=== PATIENT | female | born 1950 | race Caucasian/White ===

== ENCOUNTER 2022-11-16 13:42 | Inpatient (IN) ==
[2022-11-16 18:13] VITALS: BMI 22.4
[2022-11-16] MEDS ORDERED: AMBIEN PO PRN (19:23)
--- NOTE | 2022-11-16 19:32 | DR.UPDATE ---
H&P UPDATE Review Yes Any changes to H&P?: No
[2022-11-16 19:56] LABS: BASOPHILS # (AUTO) 0.1 X10^3/uL (0.0-0.1); BASOPHILS % (AUTO) 1.4 % (0.2-1.0); EOSINOPHILS # (AUTO) 0.2 x10^3/uL (0.0-0.2); EOSINOPHILS % (AUTO) 3.5 % (0.9-2.9); HEMATOCRIT 32.7 % (36.0-47.0); LYMPHOCYTES # (AUTO) 1.6 X10^3/uL (1.3-2.9); LYMPHOCYTES % (AUTO) 35.6 % (21.0-51.0); MEAN CORPUSCULAR HEMOGLOBIN 32.4 pg (27.0-34.0); MEAN CORPUSCULAR HGB CONC 33.5 g/dL (33.0-35.0); MEAN CORPUSCULAR VOLUME 96.5 fL (80.0-100.0); MEAN PLATELET VOLUME 9.4 fL (7.4-11.0); MONOCYTES # (AUTO) 0.4 x10^3/uL (0.3-0.8); NEUTROPHILS # (AUTO) 2.3 x10^3/uL (2.2-4.8); NEUTROPHILS % (AUTO) 50.5 % (42.0-75.0); RED BLOOD COUNT 3.39 X10^6/uL (3.5-5.4); WHITE BLOOD COUNT 4.6 X10^3/uL (3.6-10.0)
[2022-11-16 20:04] LABS: ALANINE AMINOTRANSFERASE 13 Units/L (12-78); ALBUMIN 2.8 g/dL (3.4-5.0); ALKALINE PHOSPHATASE 99 Units/L (46-116); ASPARTATE AMINO TRANSFERASE 12 Units/L (15-37); BLOOD UREA NITROGEN 10 mg/dL (7-18); CALCIUM 8.3 mg/dL (8.5-10.1); CARBON DIOXIDE 34.5 mmol/L (21-32); CHLORIDE 103 mmol/L (98-107); COR CA(FOR HYPOALB) 9.3 mg/dL (8.5-10.1); SODIUM 139 mmol/L (136-145); TOTAL PROTEIN 5.9 g/dL (6.4-8.2); eGFR NON BLACK RACES > 60 (>60)
[2022-11-16] MEDS: LR 1,000 ML IV 1,000 ML IV SCH (23:20)
[2022-11-16] MEDS: ZOSYN VIAL 3.375 GRAMS 3.375 G in NS 100 ML IV 100 ML IV SCH (23:20)
[2022-11-16] MEDS: TOPAMAX TAB 100 MG PO SCH (23:32)
[2022-11-16] MEDS: MYSOLINE PO SCH (23:32)
[2022-11-16] MEDS: ZOVIRAX PO SCH (23:33)
[2022-11-16] MEDS: FLEXERIL TAB 10 MG PO SCH (23:33)
[2022-11-16] MEDS: PERCOCET TAB 5/325 MG PO PRN (23:38)
[2022-11-17] MEDS: M.S. CONTIN 30 MG EXTENDED RELEASE PO SCH ×2 (04:31→06:24)
[2022-11-17] MEDS: ZOVIRAX PO SCH ×3 (05:23→21:16)
[2022-11-17] MEDS: PERCOCET TAB 5/325 MG PO PRN (05:24)
[2022-11-17] MEDS: ZOSYN VIAL 3.375 GRAMS 3.375 G in NS 100 ML IV 100 ML IV SCH ×3 (05:24→21:18)
[2022-11-17] MEDS: SYNTHROID 25 mcg TAB PO SCH (06:16)
--- NOTE | 2022-11-17 07:07 | RAD ---
HISTORYPreop infected left hip woundSTUDYChest AP portableCOMPARISONNoneFINDINGSHeart size is normal. Sophie are normal. Lung hernandez are clear. No pleural effusions are identified. Bony thorax is unremarkable.IMPRESSIONLungs clearElectronically signed by: ROLO MCCAULEY (Nov 17, 2022 07:06:19)
[2022-11-17] MEDS ORDERED: PREMARIN PO SCH (09:00)
[2022-11-17] MEDS ORDERED: LEXAPRO ONE (09:53)
[2022-11-17] MEDS: ZETIA TAB 10 MG PO SCH (09:59)
[2022-11-17] MEDS: TOPAMAX TAB 100 MG PO SCH ×2 (09:59→21:17)
[2022-11-17] MEDS: FLEXERIL TAB 10 MG PO SCH ×2 (09:59→21:16)
[2022-11-17] MEDS: PROTONIX TAB 40 MG PO SCH (09:59)
[2022-11-17] MEDS: ZyrTEC TAB 10 MG PO SCH (09:59)
[2022-11-17] MEDS: OXYBUTYNIN CHLORIDE ER PO SCH (09:59)
[2022-11-17] MEDS: LEXAPRO PO SCH (10:00)
[2022-11-17] MEDS: LR 1,000 ML IV 1,000 ML IV SCH ×3 (11:47→21:18)
[2022-11-17] MEDS: M.S. CONTIN 15 MG (EXTENDED RELEASE) PO SCH ×2 (13:51→21:17)
[2022-11-17] MEDS: PATIENT'S HOME MEDICATION PO SCH (16:44)
[2022-11-17] MEDS: BENTYL CAP 10 MG PO SCH ×2 (17:16→21:17)
[2022-11-17] MEDS ORDERED: AMBIEN PO PRN (19:27)
--- NOTE | 2022-11-17 19:50 | NOTE.SOAP ---
Soap Note Note for Day of Date of Exam: 11/17/22 Subjective Data Subjective Data: Stable hospital course, Hgb= 11.0, WBC=4.6. Objective Data Temperature: 97.8 F Pulse Rate: 102 Respiratory Rate: 20 Blood Pressure: 157/72 O2 Sat by Pulse Oximetry: 98 Objective Data: Wound left hip Assessment Assessment: Left hip open wound Plan Plan: Continue IV antibiotics and plan excisional debridement of left hip wound and place wound vacuum.
[2022-11-17] MEDS: NORCO 10/325 TAB PO PRN (19:52)
[2022-11-17] MEDS ORDERED: PATIENT'S HOME MEDICATION PO SCH (21:00)
[2022-11-17] MEDS: MYSOLINE PO SCH (21:17)
[2022-11-17] MEDS: INDERAL TAB 10 MG PO SCH (21:17)
[2022-11-18] MEDS: INDERAL TAB 10 MG PO SCH ×3 (05:19→21:23)
[2022-11-18] MEDS: M.S. CONTIN 15 MG (EXTENDED RELEASE) PO SCH ×3 (05:20→21:24)
[2022-11-18] MEDS: ZOSYN VIAL 3.375 GRAMS 3.375 G in NS 100 ML IV 100 ML IV SCH ×3 (05:20→21:22)
[2022-11-18] MEDS: ZOVIRAX PO SCH ×3 (05:20→21:24)
[2022-11-18] MEDS: SYNTHROID 25 mcg TAB PO SCH (05:41)
[2022-11-18] MEDS: BENTYL CAP 10 MG PO SCH ×4 (10:04→21:23)
[2022-11-18] MEDS: FLEXERIL TAB 10 MG PO SCH ×2 (10:04→21:23)
[2022-11-18] MEDS: ZETIA TAB 10 MG PO SCH (10:05)
[2022-11-18] MEDS: ZyrTEC TAB 10 MG PO SCH ×2 (10:05→13:57)
--- NOTE | 2022-11-18 10:06 | EKG ---
Test Reason : pre-op Blood Pressure : */* mmHG Vent. Rate : 88 BPM Atrial Rate : 88 BPM P-R Int : 120 ms QRS Dur : 66 ms QT Int : 372 ms P-R-T Axes : 57 72 51 degrees QTc Int : 450 ms Normal sinus rhythm Normal ECG No previous ECGs available Confirmed by Mo Edgar ([id number]) on 11/20/2022 1:42:39 PM Referred By: Confirmed By: Mo Edgar
[2022-11-18] MEDS: TOPAMAX TAB 100 MG PO SCH ×3 (10:15→21:23)
[2022-11-18] MEDS: LEXAPRO PO SCH ×2 (10:15→13:52)
[2022-11-18] MEDS: PROTONIX TAB 40 MG PO SCH ×2 (10:16→13:56)
[2022-11-18] MEDS ORDERED: NS 100 ML IV 100 ML ONE (10:51)
[2022-11-18] MEDS ORDERED: ANCEF VIAL 1 GRAM ONE (10:51)
[2022-11-18] MEDS ORDERED: LR 1,000 ML IV 1,000 ML IV ONE (10:51)
[2022-11-18] MEDS ORDERED: MARCAINE/EPINEPHRINE ONE (11:13)
[2022-11-18] MEDS ORDERED: DIPRIVAN VIAL 20 ML ONE (11:13)
[2022-11-18] MEDS ORDERED: BETADINE SOLN ONE (11:13)
[2022-11-18] MEDS ORDERED: VERSED ONE (11:14)
[2022-11-18] MEDS ORDERED: FENTANYL VIAL INJ 100 mcg ONE (11:14)
[2022-11-18] MEDS ORDERED: KETAMINE HCL ONE (11:20)
[2022-11-18] MEDS: OXYBUTYNIN CHLORIDE ER PO SCH (11:20)
[2022-11-18] MEDS: PATIENT'S HOME MEDICATION PO SCH (11:22)
[2022-11-18] MEDS ORDERED: BACTROBAN TOPICAL OINT ONE (11:55)
[2022-11-18] MEDS ORDERED: DILAUDID INJ ONE (12:01)
--- NOTE | 2022-11-18 12:06 | OR.IMMED ---
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 Post-Op Diagnosis: same Procedure: Excisional debridement left hip wound , place wound vacuum, incisional biopsy left lateral malleolus wound Description of Procedure: see operative summary Surgeon/Mutuel Machine Operator: Alvaro Specimens Removed: as above , both sent for permanent pathology Complications: none Progress Notes: Return to floor, consult home health , plan discharge tomorrow
[2022-11-18] MEDS ORDERED: LEXAPRO ONE (13:36)
[2022-11-18] MEDS: NORCO 10/325 TAB PO PRN (18:14)
[2022-11-18] MEDS: LR 1,000 ML IV 1,000 ML IV SCH (18:50)
[2022-11-18] MEDS: MYSOLINE PO SCH (21:24)
[2022-11-19] MEDS ORDERED: NS 250 ML IV 250 ML IV ONE (04:43)
[2022-11-19] MEDS: ZOVIRAX PO SCH (05:19)
[2022-11-19] MEDS: INDERAL TAB 10 MG PO SCH (05:19)
[2022-11-19] MEDS: M.S. CONTIN 15 MG (EXTENDED RELEASE) PO SCH (05:20)
[2022-11-19] MEDS: ZOSYN VIAL 3.375 GRAMS 3.375 G in NS 100 ML IV 100 ML IV SCH (05:20)
[2022-11-19] MEDS: SYNTHROID 25 mcg TAB PO SCH (05:33)
[2022-11-19] MEDS ORDERED: LEXAPRO ONE (08:32)
[2022-11-19] MEDS: ZETIA TAB 10 MG PO SCH ×2 (08:51→09:04)
[2022-11-19] MEDS: TOPAMAX TAB 100 MG PO SCH (08:51)
[2022-11-19] MEDS: BENTYL CAP 10 MG PO SCH (08:52)
[2022-11-19] MEDS: OXYBUTYNIN CHLORIDE ER PO SCH (08:52)
[2022-11-19] MEDS: ZyrTEC TAB 10 MG PO SCH (08:53)
[2022-11-19] MEDS: FLEXERIL TAB 10 MG PO SCH (08:54)
[2022-11-19] MEDS: PROTONIX TAB 40 MG PO SCH (08:54)
[2022-11-19] MEDS: LEXAPRO PO SCH (08:54)
[2022-11-19] MEDS: NORCO 10/325 TAB PO PRN (08:55)
[2022-11-19 12:38] VITALS: BP 123/65
--- NOTE | 2022-11-19 23:46 | W.DIS.FURT ---
Summary of Discharge Discharge Summary of Date Date of Exam: 11/19/22 Admission Date Date of Admission: 11/16/22 Admission Diagnosis Hospital Course: 72 year old female who was admitted with a 5 cm necrotic wound to the left hip. She has history of pyoderma gangrenosum to the left medial ankle which is now healed and now has a 2-cm wound to the left lateral malleolus. She was admitted and placed on IV antibiotics. She underwent excisional debridement of the left hip yesterday with placement of a wound vacuum and excisional biopsy of the left lateral malleolus wound. She will be discharged home today with Home Health to care for the wound vacuum and I will see her in the office in one week. She will be on her usual medications and she will be on the Clindamycin 150 mg po QID.. Vital Signs: Vital Signs (72 hours) 11/17/22 19:49 11/17/22 00:00 11/17/22 00:38 Temperature 97.8 F 97.9 F Pulse Rate 102 H Pulse Rate [Brachial] Pulse Rate [Left Radial] 89 Respiratory Rate 20 18 18 Blood Pressure 157/72 Blood Pressure [Left Arm] Blood Pressure [Right Arm] 174/89 O2 Sat by Pulse Oximetry 98 95 Oxygen Delivery Method Room Air 11/17/22 04:00 11/17/22 05:24 11/17/22 06:24 Temperature 97.6 F Pulse Rate Pulse Rate [Brachial] Pulse Rate [Left Radial] 87 Respiratory Rate 20 20 20 Blood Pressure Blood Pressure [Left Arm] Blood Pressure [Right Arm] 146/76 O2 Sat by Pulse Oximetry 95 Oxygen Delivery Method Room Air 11/17/22 06:24 11/17/22 07:20 11/17/22 08:00 Temperature 99.0 F Pulse Rate Pulse Rate [Brachial] Pulse Rate [Left Radial] 104 H Respiratory Rate 20 20 Blood Pressure Blood Pressure [Left Arm] Blood Pressure [Right Arm] 142/77 O2 Sat by Pulse Oximetry 94 L Oxygen Delivery Method Room Air Room Air 11/17/22 12:00 11/17/22 13:51 11/17/22 14:51 Temperature 97.8 F Pulse Rate Pulse Rate [Brachial] Pulse Rate [Left Radial] 102 H Respiratory Rate 20 20 20 Blood Pressure Blood Pressure [Left Arm] 157/72 Blood Pressure [Right Arm] O2 Sat by Pulse Oximetry 96 Oxygen Delivery Method Room Air 11/17/22 16:00 11/17/22 19:00 11/17/22 19:52 Temperature 97.4 F L Pulse Rate Pulse Rate [Brachial] Pulse Rate [Left Radial] 98 H Respiratory Rate 20 18 Blood Pressure Blood Pressure [Left Arm] 149/70 Blood Pressure [Right Arm] O2 Sat by Pulse Oximetry 95 Oxygen Delivery Method Room Air Room Air 11/17/22 20:00 11/17/22 20:52 11/17/22 21:17 Temperature 98.2 F Pulse Rate Pulse Rate [Brachial] Pulse Rate [Left Radial] 108 H Respiratory Rate 20 18 18 Blood Pressure Blood Pressure [Left Arm] Blood Pressure [Right Arm] 142/73 O2 Sat by Pulse Oximetry 98 Oxygen Delivery Method Room Air 11/18/22 00:00 11/17/22 22:17 11/18/22 05:15 Temperature 97.3 F L 97.9 F Pulse Rate Pulse Rate [Brachial] Pulse Rate [Left Radial] 91 H 85 Respiratory Rate 20 18 20 Blood Pressure Blood Pressure [Left Arm] Blood Pressure [Right Arm] 120/67 129/74 O2 Sat by Pulse Oximetry 94 L 94 L Oxygen Delivery Method Room Air Room Air 11/18/22 07:12 11/18/22 08:00 11/18/22 12:01 Temperature 97.9 F Pulse Rate Pulse Rate [Brachial] Pulse Rate [Left Radial] 86 Respiratory Rate 18 20 Blood Pressure Blood Pressure [Left Arm] Blood Pressure [Right Arm] 163/72 O2 Sat by Pulse Oximetry 86 L Oxygen Delivery Method Room Air Room Air 11/18/22 13:49 11/18/22 12:10 11/18/22 12:25 Temperature 98.6 F Pulse Rate Pulse Rate [Brachial] 95 H 101 H Pulse Rate [Left Radial] Respiratory Rate 20 18 18 Blood Pressure Blood Pressure [Left Arm] 144/64 135/72 Blood Pressure [Right Arm] O2 Sat by Pulse Oximetry 94 L 96 Oxygen Delivery Method 11/18/22 12:40 11/18/22 12:55 11/18/22 13:10 Temperature 98.3 F Pulse Rate Pulse Rate [Brachial] 107 H 102 H 103 H Pulse Rate [Left Radial] Respiratory Rate 18 18 18 Blood Pressure Blood Pressure [Left Arm] 133/72 134/64 148/67 Blood Pressure [Right Arm] O2 Sat by Pulse Oximetry 95 94 L 94 L Oxygen Delivery Method 11/18/22 14:10 11/18/22 18:14 11/18/22 16:10 Temperature 98.3 F 98.2 F Pulse Rate Pulse Rate [Brachial] 109 H 90 Pulse Rate [Left Radial] Respiratory Rate 18 18 18 Blood Pressure Blood Pressure [Left Arm] 146/63 142/65 Blood Pressure [Right Arm] O2 Sat by Pulse Oximetry 93 L 92 L Oxygen Delivery Method 11/18/22 17:10 11/18/22 19:09 11/18/22 19:00 Temperature 98.6 F Pulse Rate Pulse Rate [Brachial] 90 Pulse Rate [Left Radial] Respiratory Rate 18 18 Blood Pressure Blood Pressure [Left Arm] 134/63 Blood Pressure [Right Arm] O2 Sat by Pulse Oximetry 93 L Oxygen Delivery Method Room Air 11/18/22 20:00 11/18/22 21:24 11/18/22 22:24 Temperature 97.7 F Pulse Rate Pulse Rate [Brachial] 87 Pulse Rate [Left Radial] Respiratory Rate 20 18 18 Blood Pressure Blood Pressure [Left Arm] Blood Pressure [Right Arm] 159/76 O2 Sat by Pulse Oximetry 95 Oxygen Delivery Method Room Air 11/18/22 23:51 11/19/22 04:00 11/19/22 05:20 Temperature 98.4 F 98.6 F Pulse Rate Pulse Rate [Brachial] 89 84 Pulse Rate [Left Radial] Respiratory Rate 20 20 20 Blood Pressure Blood Pressure [Left Arm] Blood Pressure [Right Arm] 142/68 121/62 O2 Sat by Pulse Oximetry 95 94 L Oxygen Delivery Method Room Air Room Air 11/19/22 06:20 11/19/22 08:55 11/19/22 07:00 Temperature Pulse Rate Pulse Rate [Brachial] Pulse Rate [Left Radial] Respiratory Rate 18 18 Blood Pressure Blood Pressure [Left Arm] Blood Pressure [Right Arm] O2 Sat by Pulse Oximetry Oxygen Delivery Method Room Air 11/19/22 08:00 11/19/22 09:55 11/19/22 12:00 Temperature 98.5 F 98.3 F Pulse Rate Pulse Rate [Brachial] 79 80 Pulse Rate [Left Radial] Respiratory Rate 18 18 18 Blood Pressure Blood Pressure [Left Arm] 129/60 123/65 Blood Pressure [Right Arm] O2 Sat by Pulse Oximetry 96 94 L Oxygen Delivery Method Room Air Room Air Labs: Laboratory Last Values WBC 4.6 X10^3/uL (3.6-10.0) 11/16/22 19:44 RBC 3.39 X10^6/uL (3.5-5.4) L 11/16/22 19:44 Hgb 11.0 g/dL (12.0-16.0) L 11/16/22 19:44 Hct 32.7 % (36.0-47.0) L 11/16/22 19:44 MCV 96.5 fL (80.0-100.0) 11/16/22 19:44 MCH 32.4 pg (27.0-34.0) 11/16/22 19:44 MCHC 33.5 g/dL (33.0-35.0) 11/16/22 19:44 RDW 15.0 % (11.6-16.5) 11/16/22 19:44 Plt Count 201 X10^3/uL (150.0-450.0) 11/16/22 19:44 MPV 9.4 fL (7.4-11.0) 11/16/22 19:44 Neut % (Auto) 50.5 % (42.0-75.0) 11/16/22 19:44 Lymph % (Auto) 35.6 % (21.0-51.0) 11/16/22 19:44 [place] % (Auto) 9.0 % (0.0-13.0) 11/16/22 19:44 Eos % (Auto) 3.5 % (0.9-2.9) H 11/16/22 19:44 Baso % (Auto) 1.4 % (0.2-1.0) H 11/16/22 19:44 Neut # (Auto) 2.3 x10^3/uL (2.2-4.8) 11/16/22 19:44 Lymph # (Auto) 1.6 X10^3/uL (1.3-2.9) 11/16/22 19:44 [place] # (Auto) 0.4 x10^3/uL (0.3-0.8) 11/16/22 19:44 Eos # (Auto) 0.2 x10^3/uL (0.0-0.2) 11/16/22 19:44 Baso # (Auto) 0.1 X10^3/uL (0.0-0.1) 11/16/22 19:44 Absolute Nucleated RBC 0.0 /100WBC 11/16/22 19:44 Sodium 139 mmol/L (136-145) 11/16/22 19:44 Corrected Sodium TNP 11/16/22 19:44 Potassium 3.3 mmol/L (3.5-5.1) L 11/16/22 19:44 Chloride 103 mmol/L (98-107) 11/16/22 19:44 Carbon Dioxide 34.5 mmol/L (21-32) H 11/16/22 19:44 BUN 10 mg/dL (7-18) 11/16/22 19:44 Creatinine 0.70 mg/dL (0.55-1.02) 11/16/22 19:44 Est GFR (MDRD) Af Amer > 60 (>60) 11/16/22 19:44 Est GFR (MDRD) Non-Af > 60 (>60) 11/16/22 19:44 Glucose 109 mg/dL (65-99) H 11/16/22 19:44 Calcium 8.3 mg/dL (8.5-10.1) L 11/16/22 19:44 Corrected Calcium 9.3 mg/dL (8.5-10.1) 11/16/22 19:44 Total Bilirubin 0.20 mg/dL (0.2-1.0) 11/16/22 19:44 AST 12 Units/L (15-37) L 11/16/22 19:44 ALT 13 Units/L (12-78) 11/16/22 19:44 Alkaline Phosphatase 99 Units/L (46-116) 11/16/22 19:44 Total Protein 5.9 g/dL (6.4-8.2) L 11/16/22 19:44 Albumin 2.8 g/dL (3.4-5.0) L 11/16/22 19:44 Globulin 3.1 g/dL (2.5-4.5) 11/16/22 19:44 Albumin/Globulin Ratio 0.9 Ratio (1.1-2.1) L 11/16/22 19:44 Reason For Visit: INFECTED LEFT HIP WOUND Discharge Date Discharge Date: 11/19/22 Discharge Diagnosis Plan of Treatment: Continue with present treatment and follow up plan. Pt is to keep follow up appointment as instructed and take medications as ordered. Discharge Medications Discharge Medications: pregabalin [From Lyrica] Allergy (Severe, Verified 11/16/22 22:13) ANAPHALEXIS REACTION CONTINUE taking the following medications eszopiclone 3 mg tablet 3 mg PO QHS 11/16/22 [History] morphine 15 mg tablet,extended release 15 mg PO Q8H PRN 11/16/22 [History] primidone 50 mg tablet 150 mg PO QHS 11/16/22 [History] quetiapine 200 mg tablet 200 mg PO QAM 11/16/22 [History] cariprazine 3 mg capsule 3 mg PO QDAY 11/17/22 [History] cyclobenzaprine 10 mg tablet 10 mg PO TID 11/17/22 [History] dicyclomine 20 mg tablet 20 mg PO QID 11/17/22 [History] hydrocodone 10 mg-acetaminophen 325 mg tablet 1 tab PO QID PRN pain 11/17/22 [History] propranolol 40 mg tablet 40 mg PO TID 11/17/22 [History] quetiapine 200 mg tablet 400 mg PO QPM 11/17/22 [History] New Prescriptions clindamycin HCl 150 mg capsule 150 mg PO QID #20 caps 11/19/22 [Rx] Discharge Disposition Assessment: No acute distress noted at discharge. Discharge Plan Discharge Plan Hospital Course: 72 year old female who was admitted with a 5 cm necrotic wound to the left hip. She has history of pyoderma gangrenosum to the left medial ankle which is now healed and now has a 2-cm wound to the left lateral malleolus. She was admitted and placed on IV antibiotics. She underwent excisional debridement of the left hip yesterday with placement of a wound vacuum and excisional biopsy of the left lateral malleolus wound. She will be discharged home today with Home Health to care for the wound vacuum and I will see her in the office in one week. She will be on her usual medications and she will be on the Clindamycin 150 mg po QID.. Patient Disposition: HOME HEALTH SERVICE Condition: Stable Health Concerns: Post Hospitalization: new medications and changes needed to prevent readmission or further decline. Pt educated and given instructions on all concerns. Care Plan Goals: Problem: Infection Goal: Temperature within normal limits. Resolved infection. Instructions: Follow provided instructions. Follow up with primary physician as directed. Contact primary care physician or report to the closest Emergency Room if condition worsens. Plan of Treatment: Continue with present treatment and follow up plan. Pt is to keep follow up appointment as instructed and take medications as ordered. Assessment: No acute distress noted at discharge. Prescriptions: New clindamycin HCl 150 mg Capsule 150 mg PO QID Qty: 20 0RF No Action primidone 50 mg tablet 150 mg PO QHS Rx Instructions: TAKE THREE TABLETS BY MOUTH EVERY NIGHT AT BEDTIME morphine 15 mg tablet extended release 15 mg PO Q8H PRN Rx Instructions: TAKE ONE TABLET BY MOUTH EVERY 8 HOURS NEEDED eszopiclone 3 mg tablet 3 mg PO QHS Rx Instructions: TAKE ONE TABLET BY MOUTH IMMEDIATELY BEFORE BEDTIME quetiapine 200 mg tablet 200 mg PO QAM Rx Instructions: TAKE ONE TABLET BY MOUTH EVERY MORNING AND TAKE TWO TABLETS BY MOUTH EVERY EVENING cyclobenzaprine 10 mg Tablet 10 mg PO TID Rx Instructions: TAKE ONE TABLET BY MOUTH THREE TIMES A DAY quetiapine 200 mg tablet 400 mg PO QPM Rx Instructions: TAKE ONE TABLET BY MOUTH EVERY MORNING AND TAKE TWO TABLETS BY MOUTH EVERY EVENING hydrocodone-acetaminophen 10-325 mg tablet 1 tab PO QID PRN (Reason: pain) Rx Instructions: TAKE ONE TABLET BY MOUTH FOUR TIMES DAILY NEEDED propranolol 40 mg Tablet 40 mg PO TID Rx Instructions: TAKE ONE TABLET BY MOUTH THREE TIMES A DAY dicyclomine 20 mg Tablet 20 mg PO QID Rx Instructions: TAKE ONE TABLET BY MOUTH FOUR TIMES A DAY cariprazine 3 mg Capsule 3 mg PO QDAY Rx Instructions: TAKE ONE CAPSULE BY MOUTH EVERY DAY Follow ups/Referrals Follow ups/Referrals: Dar John [STAFF PHYSICIAN] - 11/24/22 11:30 am REILLY CHEW [Primary Care Provider] - 1 WEEK Instructions Instructions: Negative Pressure Wound Therapy Home Guide, Muscle Pain, Adult, Hand Washing, [id number], Surgical Wound Debridement, Care After, Infection Prevention in the Home, How to Prevent Constipation After Surgery Stand Alone Forms: Excuse From Work or School
--- NOTE | 2022-11-22 23:27 | DR.OPNOTE ---
OP NOTE Pre-Op Diagnosis: Necrotic wound to the left hip, wound to left lateral malleolus Post-Op Diagnosis: same Procedure Date Date Of Procedure: 11/18/22 Procedure: PROCEDURE: EXCISION OF NECROTIC LEFT HIP WOUND AND PLACEMENT OF WOUND VACUUM ,INCISIONAL BIOPSY OF LATERAL MALLOLAR WOUND NARRATIVE: The patient was taken to the operative suite and placed in the right lateral position. She was given intravenous sedation which was supervised by myself. The entire left leg and left hip were prepped and draped in sterile fashion. Time out for the procedure obtained. 20 cc's of 0.5% Marcaine injected in the space around the necrotic wound of the left hip with a circular measure 5 cm in diameter and 3 cm in depth . Incision made around wound on the skin edge the with a # 10 blade knife and electrocautery used to excise the entire lesion down to the fascia covering the greater trochanter of the left hip. Hemostasis obtained with electrocautery. Circular piece of black foam cut to fit the wound and it covered with an adhesive sheet. Small incision removing a one inch square from the adhesive sheet over the black foam . A tract of foam 1 inch wide by 7 inches long was placed over this opening and directed toward the left anterior thigh and then covered with another piece of adhesive foam leaving the distal end open along the thigh The circular track pad was applied over the open foam and it placed on suction at 150 mm of Hg with continuous action. The 2 cm diameter wound to the left lateral malleolus was infiltrated with 0.5% Marcaine and approximately one-fourth of this wound removed sharply with number 15 blade knife This patient has a history of pyoderma gangrenosum in the past. Dressing applied to the left lateral malleolus. The patient was taken back to her room. Findings: as above Specimen/Pathology: Both specimens sent to patholgy Type of Fluids Used:: Lactated Ringers Total Amount of Fluid Infused:: 500 cc EBL: minimal Complications:: none Needle/Sponge Count:: correct Disposition/Condition: Pt. tolerated procedure without difficulty. Patient taken back to her room in stable condition.
== END 2022-11-19 12:30 | disposition home health service (06) | DRG 571 ==
LOC: MED/SURG 17:18
PROVIDERS: ADMIT Surgery; ATTEND Surgery

== ENCOUNTER 2023-09-20 10:57 | Inpatient (IN) ==
[2023-09-20] MEDS: ZOSYN VIAL 3.375 GRAMS 3.375 G in NS 100 ML IV 100 ML IV SCH ×3 (13:30→21:43)
[2023-09-20 13:32] LABS: BASOPHILS # (AUTO) 0.2 X10^3/uL (0.0-0.1); BASOPHILS % (AUTO) 2.9 % (0.2-1.0); EOSINOPHILS # (AUTO) 0.4 x10^3/uL (0.0-0.2); EOSINOPHILS % (AUTO) 5.1 % (0.9-2.9); HEMATOCRIT 37.1 % (36.0-47.0); HEMOGLOBIN 12.1 g/dL (12.0-16.0); LYMPHOCYTES # (AUTO) 1.8 X10^3/uL (1.3-2.9); LYMPHOCYTES % (AUTO) 25.9 % (21.0-51.0); MEAN CORPUSCULAR HEMOGLOBIN 33.1 pg (27.0-34.0); MEAN CORPUSCULAR HGB CONC 32.7 g/dL (33.0-35.0); MEAN CORPUSCULAR VOLUME 101.3 fL (80.0-100.0); MONOCYTES # (AUTO) 0.5 x10^3/uL (0.3-0.8); MONOCYTES % (AUTO) 6.7 % (0.0-13.0); NEUTROPHILS # (AUTO) 4.2 x10^3/uL (2.2-4.8); NEUTROPHILS % (AUTO) 59.4 % (42.0-75.0); PLATELET COUNT 277 X10^3/uL (150.0-450.0); RED BLOOD COUNT 3.67 X10^6/uL (3.5-5.4); RED CELL DISTRIBUTION WIDTH 14.6 % (11.6-16.5); WHITE BLOOD COUNT 7.1 X10^3/uL (3.6-10.0)
[2023-09-20 13:51] VITALS: BMI 21.6
[2023-09-20] MEDS ORDERED: NORCO 10/325 TAB PO PRN (14:08)
--- NOTE | 2023-09-20 14:08 | NOTE.SOAP ---
Soap Note Note for Day of Date of Exam: 09/20/23 Subjective Data Subjective Data: [address] Jordan's office with a chief complaint of multiple painful ulcers to bilateral fee. She stated they developped approximately 3 months ago and she has been treating them conservatively. She has chronic pain in which she takes hydrocone and morphine. She denies any other symptoms at this time including nausea, vomiting, fever, chills, calf pain or SOB. Objective Data Objective Data: Multiple fibrotic and necrotic wounds: 1 on the medial aspect of the bilateral heel measuring approximatel 5x5 cm that has an underlying bulla developing they are superifical, no exposed bone and it does not probe to bone. Another wound on the lateral malleolus of the ankle with the same presentation but no bulla. Wounds are stable and do not appear infected. No purulence, erythema or edema noted. DP pulse is palpable, PT is not. Gross epicritic and protective sensation is intact. Muscle strength intact. Assessment Assessment: 73 female presenting with non healing arterial ulcers, BL feet and ankles due to PAD Plan Plan: Patient seen bedside. Explained that we will be taking her to surgery tomorrow 09/22/23 for debridement of bilateral feet and ankles. We ordered an CTA to evaluate for vascular intervention and will communicate with Dr. John. Reconcile pain medication. Patient is NPO after midnight tonight.
--- NOTE | 2023-09-20 14:22 | EKG ---
Test Reason : INFECTION BILATERAL HEELS Blood Pressure : */* mmHG Vent. Rate : 82 BPM Atrial Rate : 82 BPM P-R Int : 124 ms QRS Dur : 74 ms QT Int : 394 ms P-R-T Axes : 68 86 64 degrees QTc Int : 460 ms Normal sinus rhythm Possible Left atrial enlargement Borderline ECG When compared with ECG of 02-FEB-2023 12:33, No significant change was found Confirmed by Esdras Knox MD ([id number]) on 09/21/2023 6:33:37 AM Referred By: Confirmed By: Esdras Knox MD
[2023-09-20 14:35] LABS: ALANINE AMINOTRANSFERASE 19 Units/L (12-78); ALBUMIN 2.8 g/dL (3.4-5.0); ALKALINE PHOSPHATASE 113 Units/L (46-116); ASPARTATE AMINO TRANSFERASE 14 Units/L (15-37); BLOOD UREA NITROGEN 7 mg/dL (7-18); CARBON DIOXIDE 26.3 mmol/L (21-32); CHLORIDE 106 mmol/L (98-107); CREATININE 0.85 mg/dL (0.55-1.02); GLUCOSE 89 mg/dL (65-99); POTASSIUM 3.6 mmol/L (3.5-5.1); SODIUM 138 mmol/L (136-145); TOTAL PROTEIN 6.1 g/dL (6.4-8.2); eGFR NON BLACK RACES > 60 (>60)
[2023-09-20] MEDS ORDERED: ZANAFLEX PO PRN (15:13)
[2023-09-20] MEDS ORDERED: AMBIEN PO PRN (15:16)
[2023-09-20] MEDS ORDERED: OMNIPAQUE 350 mg/mL 100 mL BTL 100 ML ONE (16:11)
[2023-09-20] MEDS ORDERED: OMNIPAQUE 350 mg/mL 50 mL BTL 50 ML ONE ×2 (16:11→23:53)
[2023-09-20] MEDS: LASIX PO SCH (18:28)
[2023-09-20] MEDS: M.S. CONTIN 15 MG (EXTENDED RELEASE) PO PRN (19:59)
[2023-09-20] MEDS ORDERED: CONSULT PHARMACY - POTASSIUM & MAGNESIUM XX SCH (20:00)
[2023-09-20] MEDS: TOPAMAX TAB 100 MG PO SCH (20:41)
[2023-09-20] MEDS: MYSOLINE PO SCH (20:41)
[2023-09-20] MEDS ORDERED: M.S. CONTIN 15 MG (EXTENDED RELEASE) PO SCH (21:00)
[2023-09-20] MEDS ORDERED: K-DUR TAB 20 MEQ PO SCH (21:00)
--- NOTE | 2023-09-20 21:44 | RAD ---
EXAM: CHEST, PA/LAT ADULT HISTORY: INFECTION BILATERAL HEELS; COMPARISON: None available TECHNIQUE: PA and lateral projections, 2 images FINDINGS: Cardiac silhouette is normal in size and configuration. Pulmonary vascular sizes are normal. No effusion. No focal airspace disease. No pneumothorax. No acute osseous abnormality IMPRESSION: No imaging findings of acute cardiopulmonary disease. THIS IS AN ELECTRONICALLY VERIFIED FINAL REPORT 09/20/2023 9:40 PM - Electronically signed by Duane Kohli MD
[2023-09-20] MEDS: INDERAL TAB 10 MG PO SCH (21:46)
[2023-09-20] MEDS: BUSPAR PO SCH (22:00)
[2023-09-20] MEDS: MAG-OX TAB PO SCH ×2 (22:00→23:43)
--- NOTE | 2023-09-20 22:31 | CT ---
EXAM: CTA AORTA WITH RUNOFF HISTORY: infection b/l heels; COMPARISON: None. TECHNIQUE: Axial CT images of the abdomen, pelvis and lower extremities were obtained prior to and after the ad ministration of 150 mL Omnipaque 350 IV contrast during the arterial phase. Images were reformatted w ith a 3D angiographic technique for further evaluation. Radiation dose: 758.03 mGy-cm total DLP FINDINGS: Aorta: Mild atherosclerotic changes with no aneurysm. No clinically significant stenosis or occlusio n. Mesenteric arteries/Celiac trunk: No clinically significant stenosis, occlusion or aneurysm. Renal arteries: No clinically significant stenosis, occlusion or aneurysm. Right iliac arteries: No clinically significant stenosis, occlusion or aneurysm. Left iliac arteries: No clinically significant stenosis, occlusion or aneurysm. Right femoral arteries/popliteal artery: No clinically significant stenosis, occlusion or aneurysm. Left femoral arteries/popliteal artery: No clinically significant stenosis, occlusion or aneurysm. Right infrapopliteal arteries: No occlusion or aneurysm. 3 vessel runoff. Left infrapopliteal arteries: No occlusion or aneurysm. 3 vessel runoff. Pulmonary embolus in the posterior segmental and subsegmental pulmonary arteries to the right lower l obe. Pulmonary embolus in the lateral segmental pulmonary artery to the left lower lobe. Lung bases are clear. No acute osseous abnormality. Stomach and proximal small bowel appear normal. Solid visceral organs of the upper abdomen are unremarkable. Status post cholecystectomy. No biliary dilatation. Homogeneous enhancement of the kidneys without hydronephrosis or hydroureter. No urinary calculus identified. Urinary bladder is unremarkable. Unremarkable appearance of the small and large bowel. No evidence of acute appendicitis. Status post hysterectomy. No pneumoperitoneum. No free intra-abdominal fluid. No adenopathy. IMPRESSION: 1. No acute intra-abdominal abnormality identified. 2. No significant arterial vascular disease. 3. Pulmonary embolus in the posterior segmental and subsegmental pulmonary arteries to the right lowe r lobe. THIS IS AN ELECTRONICALLY VERIFIED FINAL REPORT 09/20/2023 10:28 PM - Electronically signed by Duane Kohli MD
--- NOTE | 2023-09-21 01:41 | CT ---
EXAM:CTA, CHESTHISTORY:R/O PULMONARY EMBOLUS RIGHT AND LEFT LOBE; HX SEIZURES, MVP, HTN, CARDIAC ARRHYTHMIA, GERD, ANEMIA SX: FRANCIS, HYST, NEURO, ORTHOCOMPARISON:None.TECHNIQUE:Axial CT images of the chest were obtained after the administration of 50 mL Omnipaque 350 IV contrast utilizing a CTA protocol. 3D MIPS were performed and reviewed for further evaluation.Radiation dose: 130.71 mGy-cm total DLPFINDINGS:No significant pericardial effusion.No mediastinal or hilar lymphadenopathy.Aorta is normal in caliber without dissection.Filling defects in the segmental pulmonary arteries to the anterior, lateral and posterior segments of the right lower lobe as well as the lateral segmental pulmonary artery to the left lower lobe. Filling defect in the medial subsegmental pulmonary artery to the left lower lobe.No evidence of elevated right heart pressures/right ventricular dysfunction.Airways are widely patent.Thyroid appears normal.No pleural effusion.No focal infiltrate.No pneumothorax.No concerning lung parenchymal lesion identified.Diffuse esophageal wall thickening.Imaged portion of the upper abdomen is unremarkable.No acute osseous abnormality.IMPRESSION:1. Bilateral lower lobe pulmonary emboli; as described above. No evidence of right ventricular dysfunction/elevated right heart pressures.2. Diffuse esophageal wall thickening may represent esophagitis.THIS IS AN ELECTRONICALLY VERIFIED FINAL REPORT09/21/2023 1:38 AM - Electronically signed by Duane Kohli MD
[2023-09-21] MEDS ORDERED: HEPARIN SODIUM IN D5W 25,000 UNITS/500 ML BAG IV PRN (02:14)
[2023-09-21 02:18] LABS: INR 1.2 (0.8-1.3)
[2023-09-21] MEDS ORDERED: HEPARIN SODIUM INJ 5000 UNITS IVP ONE (02:30)
[2023-09-21] MEDS ORDERED: HEPARIN SODIUM INJ 5000 UNITS ONE (02:36)
[2023-09-21] MEDS: INDERAL TAB 10 MG PO SCH ×3 (05:24→21:46)
[2023-09-21] MEDS: BUSPAR PO SCH ×3 (05:31→21:45)
[2023-09-21] MEDS: ZOSYN VIAL 3.375 GRAMS 3.375 G in NS 100 ML IV 100 ML IV SCH ×3 (05:31→21:44)
[2023-09-21 06:34] LABS: BASOPHILS % (AUTO) 0.8 % (0.2-1.0); EOSINOPHILS # (AUTO) 0.3 x10^3/uL (0.0-0.2); EOSINOPHILS % (AUTO) 5.6 % (0.9-2.9); HEMATOCRIT 34.9 % (36.0-47.0); HEMOGLOBIN 11.6 g/dL (12.0-16.0); LYMPHOCYTES # (AUTO) 2.6 X10^3/uL (1.3-2.9); LYMPHOCYTES % (AUTO) 45.9 % (21.0-51.0); MEAN CORPUSCULAR HEMOGLOBIN 33.4 pg (27.0-34.0); MEAN CORPUSCULAR HGB CONC 33.1 g/dL (33.0-35.0); MEAN PLATELET VOLUME 9.7 fL (7.4-11.0); MONOCYTES # (AUTO) 0.5 x10^3/uL (0.3-0.8); MONOCYTES % (AUTO) 9.4 % (0.0-13.0); NEUTROPHILS # (AUTO) 2.1 x10^3/uL (2.2-4.8); NEUTROPHILS % (AUTO) 38.3 % (42.0-75.0); PLATELET COUNT 230 X10^3/uL (150.0-450.0); RED BLOOD COUNT 3.46 X10^6/uL (3.5-5.4); RED CELL DISTRIBUTION WIDTH 14.7 % (11.6-16.5); WHITE BLOOD COUNT 5.6 X10^3/uL (3.6-10.0)
[2023-09-21 06:56] LABS: ALANINE AMINOTRANSFERASE 15 Units/L (12-78); ALBUMIN 2.5 g/dL (3.4-5.0); ALKALINE PHOSPHATASE 104 Units/L (46-116); ASPARTATE AMINO TRANSFERASE 13 Units/L (15-37); BLOOD UREA NITROGEN 6 mg/dL (7-18); CALCIUM 8.2 mg/dL (8.5-10.1); CARBON DIOXIDE 23.6 mmol/L (21-32); CHLORIDE 107 mmol/L (98-107); COR CA(FOR HYPOALB) 9.4 mg/dL (8.5-10.1); CREATININE 0.75 mg/dL (0.55-1.02); GLUCOSE 79 mg/dL (65-99); POTASSIUM 3.9 mmol/L (3.5-5.1); SODIUM 139 mmol/L (136-145); TOTAL PROTEIN 5.8 g/dL (6.4-8.2); eGFR NON BLACK RACES > 60 (>60)
[2023-09-21] MEDS: M.S. CONTIN 15 MG (EXTENDED RELEASE) PO PRN ×2 (08:01→19:05)
[2023-09-21] MEDS ORDERED: PATIENT'S HOME MEDICATION PO SCH (09:00)
[2023-09-21] MEDS: TOPAMAX TAB 100 MG PO SCH ×2 (09:30→21:46)
[2023-09-21] MEDS: LASIX PO SCH ×2 (09:30→16:36)
[2023-09-21] MEDS ORDERED: DILAUDID INJ IVP PRN (10:00)
--- NOTE | 2023-09-21 10:29 | VAS ---
EXAM: Duplex LOWER EXT VENOUS, BILATERAL HISTORY: possible embolus lower ext; BILAT HEEL INFECTIONS, EDEMA - COMPARISON: None. TECHNIQUE: Multiple norton scale and color flow Doppler images of the deep venous system were obtained of the righ t and left lower extremity. FINDINGS: The deep venous system of the right and left lower extremities were evaluated from the level of the c ommon femoral vein through the posterior tibial vein. Normal color flow and augmentation can be obser david. In addition, normal compression is seen throughout the deep venous system. IMPRESSION: Negative for DVT. THIS IS AN ELECTRONICALLY VERIFIED FINAL REPORT 09/21/2023 10:26 AM - Electronically signed by Clayton Enamorado MD
[2023-09-21] MEDS ORDERED: ZOFRAN INJ 4 MG VIAL IVP ONE (10:30)
[2023-09-21] MEDS ORDERED: MARCAINE 0.25% INJ ONE (13:19)
[2023-09-21] MEDS ORDERED: BETADINE SOLN ONE (13:20)
[2023-09-21] MEDS ORDERED: LR 1,000 ML IV 1,000 ML IV ONE (14:05)
[2023-09-21] MEDS ORDERED: BARHEMSYS INJ ONE (14:10)
[2023-09-21] MEDS ORDERED: FENTANYL VIAL INJ 100 mcg ONE (14:40)
[2023-09-21] MEDS ORDERED: VERSED ONE ×2 (14:40→15:02)
[2023-09-21] MEDS ORDERED: DIPRIVAN VIAL 20 ML ONE (14:41)
[2023-09-21] MEDS ORDERED: KETAMINE 50 MG/5 ML-NACL SYRNG ONE (14:55)
[2023-09-21] MEDS ORDERED: CONSULT PHARMACY - POTASSIUM & MAGNESIUM XX SCH (16:00)
--- NOTE | 2023-09-21 16:01 | DR.CONSULT ---
CONSULT Consultation for Day of: Date: 09/21/23 Chief Complaint Chief Complaint: wounds both heels , wounds both lateral malleoli. Allergies Allergies Allergy/AdvReac Type Severity Reaction Status Date / Time pregabalin [From Lyrica] Allergy Severe ANAPHALEXIS Verified 11/16/22 22:13 REACTION duloxetine [From Cymbalta] AdvReac Verified 09/20/23 18:49 gabapentin AdvReac Verified 09/20/23 18:49 History of Present Illness History of Present Illness: 73 year old female who has had a past diagnosis of pyoderma gangrenosum of the extremities and pyoderma gangrenosum of the left buttock treated by me in the past with wide debridement and wound vacuum and skin grafting .That wound finally healed .Patient now with new wounds to both heels. She denies any type of pressure to this area. She also has non- healing wounds to both medial malleoli. Denies rest pain or claudication. Patient is a smoker and is not diabetic. Past Medical History Past Medical History: Arthritis, Hypertension and Seizures Past Surgical History Surgical History: Cholecystectomy, Hysterectomy, Neurosurgery and Ortho Surgery Family History Family Medical History: Cancer and [place] Social History Does patient currently use any type of tobacco product: Yes Have you used tobacco products in the last 12 months: Yes Type of Tobacco Use: Cigarettes How many years tobacco product used: 30 Does any household member use tobacco: No Alcohol Use: None Drug Use: None Medications Home Medications: pregabalin [From Lyrica] Allergy (Severe, Verified 11/16/22 22:13) ANAPHALEXIS REACTION duloxetine [From Cymbalta] Adverse Reaction (Verified 09/20/23 18:49) gabapentin Adverse Reaction (Verified 09/20/23 18:49) CONTINUE taking the following medications albuterol sulfate 90 mcg/actuation aerosol inhaler 2 puff inhalation Q6H PRN 09/20/23 [History] buspirone 15 mg tablet 15 mg PO TID 09/20/23 [History] cariprazine 3 mg capsule 3 mg PO QDAY 09/20/23 [History] furosemide 20 mg tablet 20 mg PO BID 09/20/23 [History] propranolol 40 mg tablet 40 mg PO TID 09/20/23 [History] topiramate 100 mg tablet 100 mg PO BID 09/20/23 [History] Review of Systems Constitutional: See HPI Eyes: No Symptoms Reported ENT: No Symptoms Reported Respiratory: No Symptoms Reported Cardiovascular: No Symptoms Reported Gastrointestinal: No Symptoms Reported Genitourinary: No Symptoms Reported Musculoskeletal: No Symptoms Reported Skin: See HPI Neurological: See HPI Physical Exam Vital Signs: Vital Signs Temperature 97.6 F Temperature 97.6 F Pulse Rate [Left Brachial] 79 Pulse Rate [Left Brachial] 77 Respiratory Rate 18 Respiratory Rate 20 Respiratory Rate 20 Respiratory Rate 18 Blood Pressure [Left Arm] 161/84 Blood Pressure [Left Arm] 143/70 O2 Sat by Pulse Oximetry 97 O2 Sat by Pulse Oximetry 95 Oriented: Normal, Time, Person and Place Eyes: Normal Ear: Normal Nose: Normal Throat: Normal Respiratory: Clear Throughout Cardiovascular: Normal and Other (palpable distal pulses both feet. ) : Normal Auscultation: Bowel Sounds: Normal Palpation: Normal Skin: Other (4 cm diameter wounds to each heel with stigmata of chronic inflammation. The wounds are not open. Has open wounds measuring. 2.5 cm on the left and 3 centimeters on the right to the lateral malleoli. ) Musculoskeletal: Normal Mood Description: Calm Affect: Normal Speech Pattern: Clear Plan (1) Essential (primary) hypertension: Status: Acute Plan: home meddications (2) Foot ulcer, right: Status: Acute Plan: Will make recommendations after CTA of aorta with runoff complete. (3) Foot ulcer, left: Status: Acute
--- NOTE | 2023-09-21 16:21 | NOTE.SOAP ---
Soap Note Note for Day of Date of Exam: 09/21/23 Subjective Data Subjective Data: See my consult note. CTA of aorta with b/l runoff is normal. Dr. Jordan debrided both heel wounds this AM. 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 Will start Prednisone Plan Plan: Begin Prednisone 40 mg po daily. Discussed with Dr. Jordan.
[2023-09-21] MEDS ORDERED: NS IRRIGATION* 500 ML IR ONE (16:31)
[2023-09-21] MEDS ORDERED: ZOFRAN INJ 4 MG VIAL IVP PRN (17:00)
[2023-09-21] MEDS: MYSOLINE PO SCH (21:44)
[2023-09-21] MEDS: ELIQUIS PO SCH (21:45)
[2023-09-22] MEDS: BUSPAR PO SCH (05:33)
[2023-09-22] MEDS: INDERAL TAB 10 MG PO SCH (05:33)
[2023-09-22] MEDS: ZOSYN VIAL 3.375 GRAMS 3.375 G in NS 100 ML IV 100 ML IV SCH (05:34)
[2023-09-22 05:36] LABS: BASOPHILS % (AUTO) 0.8 % (0.2-1.0); EOSINOPHILS # (AUTO) 0.2 x10^3/uL (0.0-0.2); EOSINOPHILS % (AUTO) 3.9 % (0.9-2.9); HEMATOCRIT 34.3 % (36.0-47.0); HEMOGLOBIN 11.3 g/dL (12.0-16.0); LYMPHOCYTES # (AUTO) 1.2 X10^3/uL (1.3-2.9); LYMPHOCYTES % (AUTO) 20.4 % (21.0-51.0); MEAN CORPUSCULAR HEMOGLOBIN 33.1 pg (27.0-34.0); MEAN CORPUSCULAR VOLUME 100.4 fL (80.0-100.0); MEAN PLATELET VOLUME 9.6 fL (7.4-11.0); MONOCYTES # (AUTO) 0.6 x10^3/uL (0.3-0.8); MONOCYTES % (AUTO) 11.1 % (0.0-13.0); NEUTROPHILS # (AUTO) 3.7 x10^3/uL (2.2-4.8); NEUTROPHILS % (AUTO) 63.8 % (42.0-75.0); PLATELET COUNT 248 X10^3/uL (150.0-450.0); RED BLOOD COUNT 3.42 X10^6/uL (3.5-5.4); RED CELL DISTRIBUTION WIDTH 14.6 % (11.6-16.5); WHITE BLOOD COUNT 5.8 X10^3/uL (3.6-10.0)
[2023-09-22 05:44] LABS: BLOOD UREA NITROGEN 9 mg/dL (7-18); CALCIUM 8.3 mg/dL (8.5-10.1); CARBON DIOXIDE 25.2 mmol/L (21-32); CHLORIDE 104 mmol/L (98-107); CREATININE 0.69 mg/dL (0.55-1.02); GLUCOSE 95 mg/dL (65-99); POTASSIUM 3.8 mmol/L (3.5-5.1); SODIUM 136 mmol/L (136-145); eGFR NON BLACK RACES > 60 (>60)
[2023-09-22] MEDS ORDERED: CONSULT PHARMACY - POTASSIUM & MAGNESIUM XX SCH (07:00)
[2023-09-22 07:50] VITALS: TEMP 97.9
[2023-09-22] MEDS: ELIQUIS PO SCH (08:45)
[2023-09-22] MEDS: TOPAMAX TAB 100 MG PO SCH (08:45)
[2023-09-22] MEDS: LASIX PO SCH (08:45)
[2023-09-22] MEDS: M.S. CONTIN 15 MG (EXTENDED RELEASE) PO PRN (08:46)
[2023-09-22] MEDS ORDERED: K-DUR TAB 20 MEQ PO SCH (09:00)
[2023-09-22] MEDS ORDERED: PREDNISONE TAB 20 MG PO SCH (09:00)
[2023-09-22 10:07] VITALS: BP 142/99; PULSE 78; RESP 15; O2SAT 92
[2023-09-28] MEDS ORDERED: ELIQUIS PO SCH (21:00)
== END 2023-09-22 11:05 | disposition home or self-care (01) | DRG 570 ==
LOC: MED/SURG → ICU 09-21 14:20
PROVIDERS: ADMIT Obstetrics & Gynecology Obstetrics; ATTEND Obstetrics & Gynecology Obstetrics
PROC: DEBRIDE (2023-09-21 14:45)
DX: R06.02 Shortness of breath; E83.42 Hypomagnesemia; L88 Pyoderma gangrenosum; I26.99 Other pulmonary embolism without acute cor pulmonale; L89.629 Pressure ulcer of left heel, unspecified stage; I10 Essential (primary) hypertension; I77.6 Arteritis, unspecified; L89.619 Pressure ulcer of right heel, unspecified stage